=== PATIENT | male | born 1990 | race Caucasian/White ===

== ENCOUNTER 2017-08-14 09:04 | Emergency (ER) | payer BC ==
[~2017-08-14] VITALS: Ht 185.4 cm; Wt 77.0 kg
[2017-08-14 09:05] VITALS: BP 151/98; PULSE 104; RESP 20; TEMP 98.3; O2SAT 99
[2017-08-14] MEDS ORDERED: ASPI81CH PO (09:16)
--- NOTE | 2017-08-14 09:20 | PD ---
HPI Chief Complaint: Respiratory Symptoms Time Seen by Provider: 09:12 Travel History International Travel<30 days: No Contact w/Intl Traveler<30days: No Traveled to known affect area: No History of Present Illness HPI 27-year-old male presents to the emergency department for cough and congestion with shortness of breath worsening over last 4 days. Patient states that he notices chest being tight and wheezing. States cough is productive of a white phlegm. Denies fever or chills. Denies any chest pain. Denies nausea or vomiting .patient does smoke tobacco cigarettes, less than a pack per day. Has no other symptoms to report. PFSH Past Medical History Medical History: Denies Significant Hx Social History Alcohol Use: Yes Tobacco Use: Yes Allergies-Medications (Allergen,Severity, Reaction): Coded Allergies: No Known Allergies (Unverified , 08/14/17) Reported Meds & Prescriptions Reported Meds & Active Scripts Active Reported Aspirin 81 Mg Chew 81 Mg PO HS Review of Systems Except as stated in HPI: all other systems reviewed are Neg Physical Exam Narrative GENERAL: Well-nourished, well-developed male patient, ambulatory distress SKIN: Focused skin assessment warm/dry. HEAD: Normocephalic. EYES: No scleral icterus. No injection or drainage. NECK: Supple, trachea midline. No JVD or lymphadenopathy. CARDIOVASCULAR: Tachycardic rate and rhythm without murmurs, gallops, or rubs. RESPIRATORY: Breath sounds coarse with inspiratory and expiratory wheeze equal bilaterally. No accessory muscle use. GASTROINTESTINAL: Abdomen soft, non-tender, nondistended. MUSCULOSKELETAL: No cyanosis, or edema. BACK: Nontender without obvious deformity. No CVA tenderness. Data Data Last Documented VS Vital Signs Date Time Temp Pulse Resp B/P (MAP) Pulse Ox O2 Delivery O2 Flow Rate FiO2 08/14/17 09:20 98 20 98 Room Air 08/14/17 09:05 98.3 151/98 (115) Orders Orders Albuterol-Ipratropium Neb (Duoneb Neb) (08/14/17 09:30) Dexamethasone Inj (Decadron Inj) (08/14/17 09:30) Chest, Pa & Lat (08/14/17 ) MDM Medical Decision Making Medical Screen Exam Complete: Yes Emergency Medical Condition: Yes Medical Record Reviewed: Yes Differential Diagnosis Bronchitis versus pneumonia versus COPD versus influenza Narrative Course 27-year-old male presents to the emergency department for evaluation. Patient appears well. He is mildly tachycardic with inspiratory and x-ray wheeze. DuoNeb since steroids are given here the emergency department. Upon reevaluation, symptoms have improved. Chest x-ray is without acute cardiopulmonary disease. The patient will be discharged home on a short course of oral steroids and a pro-air inhaler. He is encouraged to seek primary care follow-up and return immediately with any acute worsening symptoms. Diagnosis Primary Impression: Acute bronchitis Qualified Codes: J20.9 - Acute bronchitis, unspecified Additional Impression: Tobacco dependence Referrals: Primary Care Physician Patient Instructions: Acute Bronchitis (GEN), Cigarette Smoking and Your Health (GEN), General Instructions Departure Forms: Tests/Procedures, Work Release Enter return to work date: Aug 16, 2017 Additional Instructions: Stop smoking tobacco cigarettes Humidified air may help to alleviate symptoms Follow-up with a primary care provider Return immediately with any acute worsening of symptoms Med/Other Pt SpecificInfo: Prescription(s) given Scripts Benzonatate (Tessalon Perles) 100 Mg Cap 200 MG PO TID Y for COUGH, #20 CAP 0 Refills Prov: Annia Mendez 08/14/17 Albuterol 8.5 GM Inh (Proair Hfa 8.5 GM Inh) 90 Mcg/Act Aer 2 PUFF INH Q4H Y for SHORTNESS OF BREATH, #1 INHALER 0 Refills 108 mcg/actuation Prov: Annia Mendez 08/14/17 Prednisone (Prednisone) 50 Mg Tab 50 MG PO DAILY for 5 Days, #5 TAB 0 Refills Prov: Annia Mendez 08/14/17 Disposition: 01 DISCHARGE HOME Condition: Stable Annia Mendez Aug 14, 2017 09:20
[2017-08-14] MEDS ORDERED: RESP: ALBUTEROL 2.5 MG/IPRATROPIUM 0.5 MG NEB (SCH) NEB ONE (09:30)
[2017-08-14] MEDS ORDERED: DEXAMETHASONE SOD PHOS 4 MG/ML VIAL IM ONE (09:30)
--- NOTE | 2017-08-14 10:08 | RADRPT ---
EXAM DATE/TIME: 08/14/2017 09:57 [facility] COMPARISON: No previous studies available for comparison. INDICATIONS : Short of breath, chest pressure MEDICAL HISTORY : childhood asthma SURGICAL HISTORY : None. ENCOUNTER: Initial ACUITY: 2 days PAIN SCORE: 0/10 LOCATION: Bilateral chest FINDINGS: PA and lateral views of the chest demonstrate the lungs to be symmetrically aerated without evidence of mass, infiltrate or effusion. The cardiomediastinal contours are unremarkable. Osseous structure s are intact. CONCLUSION: Normal examination for a patient of this age. Kodak Lee MD on August 14, 2017 at 10:07 Board Certified Radiologist. This report was verified electronically.
[2017-08-14] MEDS ORDERED: BENZ100 PO (10:15)
[2017-08-14] MEDS ORDERED: PRED50 PO (10:15)
[2017-08-14] MEDS ORDERED: ALBUAER3 INH (10:15)
[2017-08-14 10:20] VITALS: BP 130/77; TEMP 97.8
== END 2017-08-14 10:20 | disposition home or self-care (01) ==
LOC: NEPK 09:04
DX: J20.9 Acute bronchitis, unspecified (principal); R05 Cough; F17.200 Nicotine dependence, unspecified, uncomplicated
CPT/HCPCS: 71020; 94664; 96372; 99284; J1100